=== PATIENT | female | born 2000 | race African-American/Black ===

== ENCOUNTER 2022-10-23 08:39 | Emergency (ER) | payer MEDICAID ==
[~2022-10-23] VITALS: Ht 180.3 cm; Wt 63.2 kg
[2022-10-23 09:33] VITALS: BP 112/66
[2022-10-23] MEDS ORDERED: ACETAMINOPHEN 500 MG TAB PO ONE (10:15)
[2022-10-23] MEDS ORDERED: BENZ1LOZ3 MT (10:40)
[2022-10-23] MEDS ORDERED: PENI500T2 PO (10:40)
== END 2022-10-23 10:45 | disposition home or self-care (01) ==
LOC: ER 08:39
DX: J03.90 Acute tonsillitis, unspecified (principal); Z88.0 Allergy status to penicillin
CPT/HCPCS: 87070; 87880